=== PATIENT | female | born 1975 | race Caucasian/White ===

== ENCOUNTER 2018-03-29 08:53 | Day surgery (SDC) | payer OTHER ==
[~2018-03-29 08:53] MED LIST: ATENOLOL25 MG PO; QVAR; VIT C-ROSE HIP500 MG PO; ZYRTEC10 M3 PO; [UNRECOGNIZED DRUG - OTHER]
[2018-03-29] MEDS ORDERED: ULTRACET PO ×2 (14:54)
== END 2018-03-29 19:40 | disposition home or self-care (01) ==
LOC: CIR.AMB 08:53
DX: N84.0 Polyp of corpus uteri (principal)

== ENCOUNTER 2018-04-02 15:47 | Emergency (ER) | payer OTHER ==
[~2018-04-02] VITALS: Ht 152.4 cm; Wt 45.4 kg
[~2018-04-02 15:47] MED LIST changes: +ULTRACET PO
[2018-04-02] MEDS ORDERED: ATENOLOL25 MG (16:20)
[2018-04-03] MEDS ORDERED: BUTALB-ACETAMI1 EACH PO (08:01)
[2018-04-03] MEDS ORDERED: PEPCID AC20 MG PO (08:01)
== END 2018-04-03 09:21 | disposition home or self-care (01) ==
LOC: ER 15:47
DX: R51 Headache (principal)